=== PATIENT | female | born 1975 | race Two or more races ===

== ENCOUNTER 2016-05-20 02:52 | Emergency (ER) | payer SELFPAY ==
[~2016-05-20] VITALS: Ht 157.5 cm; Wt 74.8 kg
[2016-05-20] MEDS ORDERED: IBUPROFEN 400 MG TABLET ONE (03:28)
[2016-05-20] MEDS ORDERED: CARISOPRODOL 350 MG TABLET ONE (03:28)
[2016-05-20] MEDS ORDERED: CARISOPRODOL 350 MG TABLET PO ONE (03:30)
[2016-05-20] MEDS ORDERED: IBUPROFEN 400 MG TABLET PO ONE (03:30)
[2016-05-20 04:36] VITALS: BP 144/76
== END 2016-05-20 04:36 | disposition home or self-care (01) ==
LOC: ER 02:55
DX: M25.511 Pain in right shoulder (principal); M79.631 Pain in right forearm; I10 Essential (primary) hypertension; V49.50XA Passenger injured in collision with unspecified motor vehicles in traffic accident, initial encounter; Y93.89 Activity, other specified; Y92.413 State road as the place of occurrence of the external cause; Y99.8 Other external cause status
CPT/HCPCS: 73030; 73090; 73130; 99284; A4606; Z7610